=== PATIENT | female | born 2000 | race Caucasian/White ===

== ENCOUNTER 2018-05-30 19:49 | Emergency (ER) | payer OTHER ==
--- NOTE | 2018-05-30 20:04 | EDPHY ---
H & P Stated Complaint: dyspnea Time Seen by Provider: 05/30/18 20:04 HPI/ROS: HPI CHIEF COMPLAINT: Reflux, cough HISTORY OF PRESENT ILLNESS: Very pleasant 17-year-old female, presents emergency room stating that she has had a cough nonproductive cough the end burning sensation or epigastric region that goes up to her throat. Through her chest. Patient reports that gets worse when she lays flat. Additionally she knows when she was exercising today got worse. Burning sensation in her chest. No pleuritic pain. No shortness of breath. Does endorse a cough. No fever. She does have a history of exercise-induced asthma but did not bring her inhaler. She decided come the emergency room to the shortness of breath, cough, burning discomfort. Past Medical History: Exercise-induced asthma Past Surgical History: No recent surgical history Social History: Denies drugs. Does Vape. Occasional alcohol use. Family History: Noncontributory ROS REVIEW OF SYSTEMS: 10 Systems were reviewed and negative with the exception of the elements mentioned in the history of present illness. Exam Constitutional nontoxic no acute distress, triage nursing summary reviewed, vital signs reviewed, awake/alert. Eyes normal conjunctivae and sclera, EOMI, PERRLA. HENT normal inspection, atraumatic, moist mucus membranes, no epistaxis, neck supple/ no meningismus, no raccoon eyes. Respiratory clear to auscultation bilaterally, normal breath sounds, no respiratory distress, no wheezing. Cardiovascular rate normal, regular rhythm, no murmur, no edema, distal pulses normal. Gastrointestinal soft, non-tender, no rebound, no guarding, normal bowel sounds, no distension, no pulsatile mass. Genitourinary no CVA tenderness. Musculoskeletal no midline vertebral tenderness, full range of motion, no calf swelling, no tenderness of extremities, no meningismus, good pulses, neurovascularly intact. Skin pink, warm, & dry, no rash, skin atraumatic. Neurologic awake, alert and oriented x 3, AAOx3, moves all 4 extremities equally, motor intact, sensory intact, CN II-XII intact, normal cerebellar, normal vision, normal speech. Psychiatric normal mood/affect. Heme/Lymph/Immune no lymphadenopathy. Differential Diagnosis: Includes but is not limited to in a particular order GERD, esophageal reflux, esophagitis, job still spasm, pneumonia, pneumothorax, reactive airway disease, PE. Medical Decision Making: Plan for this patient two view chest x-ray, DuoNeb breathing treatment, GI cocktail I do not appreciate wheezing on exam but will see if she improves with these medications. I think pulmonary embolism is very unlikely given no risk factors, it is noted she mildly tachycardic upon arrival. Re-evaluation: Patient received a chest x-ray two view this is negative for acute cardiopulmonary disease. Additionally the patient received a DuoNeb breathing treatment. GI cocktail which she states minimally improved her discomfort. Still complains of a burning discomfort. Due to this will proceed with IV establishment blood draw, EKG, check D-dimer, check troponin. And re-evaluate. Patient's troponin negative. Patient's D-dimer negative. EKG: TIME OF EK, sinus rhythm rate of 91, no signs of acute ischemia no ST elevation no ST depression no significant T-wave abnormalities. 2224: Patient re-examined feeling much better after breathing treatment. She states she can breathe much easier. There was no wheezing upon exam. And on re -examination there is no further wheezing. Patient's vitals are stable. No hypoxia. No fever. Feels much better. Will provided take him on albuterol inhaler. The patient's blood work has been reviewed she has a normal CBC, negative D- dimer, negative troponin, and EKG that shows no acute ischemia A chest x-ray that is reviewed shows no evidence of pneumothorax or pneumonia. I do feel comfortable allowing the patient go home. I do recommend she stays well hydrated, stays away from spicy fatty greasy foods. Albuterol 2 puffs every 4 hr as needed. Additionally return precautions discussed with patient return if worsening pain shortness of breath fever, not doing well. EKG interpretation by me on record in [employer] system. Impression repeat EKG time 10:25 p.m., sinus rhythm rate of 97, no ST elevation no ST depression isolated T-wave inversion V2 V3. Otherwise unremarkable. This is similar to the previous EKG time 9:08 p.m.. 2nd troponin 0.01. Albuterol inhaler provided. Return precautions discussed with the patient Source: Patient - Personal History LMP (Females 10-55): Over 28 Days Ago Current Tetanus/Diphtheria Vaccine: Yes Current Tetanus Diphtheria and Acellular Pertussis (TDAP): Yes - Medical/Surgical History Hx Asthma: Yes Hx Chronic Respiratory Disease: No Hx Diabetes: No Hx Cardiac Disease: No Hx Renal Disease: No Hx Cirrhosis: No Hx Alcoholism: No Hx HIV/AIDS: No Hx Splenectomy or Spleen Trauma: No Other PMH: sports induced asthma - Social History Smoking Status: Current every day smoker Constitutional: Initial Vital Signs Temperature (C) 36.9 C 05/30/18 19:52 Heart Rate 110 H 05/30/18 19:52 Respiratory Rate 16 05/30/18 19:52 Blood Pressure 145/98 H 05/30/18 19:52 O2 Sat (%) 96 05/30/18 19:52 O2 Delivery Mode Room Air Allergies/Adverse Reactions: penicillin G Allergy (Verified 05/30/18 19:55) Sulfa (Sulfonamide Antibiotics) Allergy (Verified 05/30/18 19:55) Medical Decision Making - Diagnostics Imaging Results: Imaging Impressions Chest X-Ray 05/30/18 20:08 Impression: Normal. - Data Points Laboratory Results: Laboratory Results 05/30/18 21:05 05/30/18 21:05 05/30/18 05/30/18 05/30/18 22:35 21:14 21:05 WBC RBC Hgb Hct MCV MCH MCHC RDW Plt Count MPV Neut % (Auto) Lymph % (Auto) Morris % (Auto) Eos % (Auto) Baso % (Auto) Nucleat RBC Rel Count Absolute Neuts (auto) Absolute Lymphs (auto) Absolute Monos (auto) Absolute Eos (auto) Absolute Basos (auto) Absolute Nucleated RBC Immature Gran % Immature Gran # D-Dimer Sodium Potassium Chloride Carbon Dioxide Anion Gap BUN Creatinine Estimated GFR Glucose Calcium Magnesium Total Bilirubin Conjugated Bilirubin Unconjugated Bilirubin AST ALT Alkaline Phosphatase POC Troponin I 0.01 ng/mL ng/mL 0.01 ng/mL ng/mL (0.00-0.08) (0.00-0.08) NT-Pro-B Natriuret Pep Total Protein Albumin Lipase Beta HCG, Qual NEGATIVE 05/30/18 05/30/18 05/30/18 21:05 21:05 21:05 WBC 7.79 10^3/uL 10^3/uL (3.80-9.50) RBC 4.60 10^6/uL 10^6/uL (4.18-5.33) Hgb 14.3 g/dL g/dL (12.6-16.3) Hct 42.4 % % (38.0-47.0) MCV 92.2 fL fL (81.5-99.8) MCH 31.1 pg pg (27.9-34.1) MCHC 33.7 g/dL g/dL (32.4-36.7) RDW 12.9 % % (11.5-15.2) Plt Count 196 10^3/uL 10^3/uL (150-400) MPV 9.5 fL fL (8.7-11.7) Neut % (Auto) 73.4 % % (39.3-74.2) Lymph % (Auto) 13.6 % L % (15.0-45.0) Morris % (Auto) 12.1 % % (4.5-13.0) Eos % (Auto) 0.3 % L % (0.6-7.6) Baso % (Auto) 0.3 % % (0.3-1.7) Nucleat RBC Rel Count 0.0 % % (0.0-0.2) Absolute Neuts (auto) 5.73 10^3/uL 10^3/uL (1.70-6.50) Absolute Lymphs (auto) 1.06 10^3/uL 10^3/uL (1.00-3.00) Absolute Monos (auto) 0.94 10^3/uL H 10^3/uL (0.30-0.80) Absolute Eos (auto) 0.02 10^3/uL L 10^3/uL (0.03-0.40) Absolute Basos (auto) 0.02 10^3/uL 10^3/uL (0.02-0.10) Absolute Nucleated RBC 0.00 10^3/uL 10^3/uL (0-0.01) Immature Gran % 0.3 % % (0.0-1.1) Immature Gran # 0.02 10^3/uL 10^3/uL (0.00-0.10) D-Dimer < 0.27 ug/mLFEU ug/mLFEU (0.00-0.50) Sodium 142 mEq/L mEq/L (135-145) Potassium 3.7 mEq/L mEq/L (3.3-5.0) Chloride 105 mEq/L mEq/L (97-110) Carbon Dioxide 21 mEq/l L mEq/l (22-31) Anion Gap 16 mEq/L H mEq/L (6-14) BUN 13 mg/dL mg/dL (7-23) Creatinine 0.8 mg/dL mg/dL (0.6-1.0) Estimated GFR > 60 Glucose 107 mg/dL H mg/dL (70-100) Calcium 9.9 mg/dL mg/dL (8.5-10.4) Magnesium 2.0 mg/dL mg/dL (1.6-2.3) Total Bilirubin 0.7 mg/dL mg/dL (0.1-1.4) Conjugated Bilirubin 0.3 mg/dL mg/dL (0.0-0.5) Unconjugated Bilirubin 0.4 mg/dL mg/dL (0.0-1.1) AST 25 IU/L IU/L (14-46) ALT 21 IU/L IU/L (9-52) Alkaline Phosphatase 92 IU/L IU/L (38-126) POC Troponin I NT-Pro-B Natriuret Pep < 11 pg/mL pg/mL (0-125) Total Protein 8.0 g/dL g/dL (6.3-8.2) Albumin 5.0 g/dL g/dL (3.5-5.0) Lipase 41 IU/L IU/L (23-300) Beta HCG, Qual Medications Given: Discontinued Medications Al Hydroxide/Mg Hydroxide (Maalox Susp) 30 ml PO ONCE ONE Stop: 05/30/18 20:09 Last Admin: 05/30/18 20:10 Dose: 30 ml Albuterol/Ipratropium (Duoneb) 3 ml IH EDNOW ONE Stop: 05/30/18 20:09 Last Admin: 05/30/18 20:10 Dose: 3 ml Hyoscyamine Sulfate (Levsin, Hyomax-Sl) 0.25 mg PO ONCE ONE Stop: 05/30/18 20:09 Last Admin: 05/30/18 20:10 Dose: 0.25 mg Sodium Chloride (Ns) 1,000 mls @ 0 mls/hr IV EDNOW ONE; Wide Open PRN Reason: Protocol Stop: 05/30/18 20:55 Last Admin: 05/30/18 21:07 Dose: 1,000 mls Lidocaine (Lidocaine 2% Viscous) 15 ml PO ONCE ONE Stop: 05/30/18 20:09 Last Admin: 05/30/18 20:10 Dose: 15 ml Point of Care Test Results: Chemistry 05/30/18 05/30/18 22:35 21:14 POC Troponin I 0.01 ng/mL ng/mL 0.01 ng/mL ng/mL (0.00-0.08) (0.00-0.08) Departure - Departure Disposition: Home, Routine, Self-Care Clinical Impression: Dyspnea Qualifiers: Dyspnea type: unspecified Qualified Code(s): R06.00 - Dyspnea, unspecified Condition: Good Instructions: Dyspnea (ED) Additional Instructions: 1. 2 puffs inhaler every 4 hr as needed for shortness of breath and wheezing. 2. Return to the emergency room if there is worsening symptoms Referrals: NONE *PRIMARY CARE P,. [Primary Care Provider] - As per Instructions
[2018-05-30] MEDS ORDERED: LIDOCAINE 2% VISCOUS 15 ML UDCUP PO ONE (20:08)
[2018-05-30] MEDS ORDERED: IPRATROPIUM/ALBUTEROL 3 ML DEYVIAL IH ONE (20:08)
[2018-05-30] MEDS ORDERED: MAG HYDROX/AL HYDROX/SIMETH 30 ML UDCUP PO ONE (20:08)
[2018-05-30] MEDS ORDERED: HYOSCYAMINE SULFATE 0.125 MG TAB PO ONE (20:08)
[2018-05-30] MEDS ORDERED: HYOSCYAMINE SULFATE 0.125 MG TAB ONE (20:08)
[2018-05-30] MEDS ORDERED: IPRATROPIUM/ALBUTEROL 3 ML DEYVIAL ONE (20:08)
[2018-05-30] MEDS ORDERED: LIDOCAINE 2% VISCOUS 15 ML UDCUP ONE (20:09)
[2018-05-30] MEDS ORDERED: MAG HYDROX/AL HYDROX/SIMETH 30 ML UDCUP ONE (20:09)
[2018-05-30] MEDS ORDERED: NS 1,000 ML IV ONE (20:54)
[2018-05-30 21:23] LABS: PLATELET COUNT 196 10^3/uL (150-400)
[2018-05-30] MEDS ORDERED: ALBUTEROL INH PREPACK MDI TAKEHOME ONE (22:24)
[2018-05-30 23:01] VITALS: BP 112/65
--- NOTE | 2018-06-06 07:05 | CPEKG ---
Test Reason : OPEN Blood Pressure : / mmHG Vent. Rate : 097 BPM Atrial Rate : 097 BPM P-R Int : 155 ms QRS Dur : 086 ms QT Int : 347 ms P-R-T Axes : 038 019 -02 degrees QTc Int : 441 ms Sinus rhythm Borderline T abnormalities, anterior leads Confirmed by Connor Gotti ([id number]) on 06/06/2018 7:05:11 AM Referred By: Confirmed By:Connor Gotti
--- NOTE | 2018-06-06 07:05 | CPEKG ---
Test Reason : OPEN Blood Pressure : / mmHG Vent. Rate : 091 BPM Atrial Rate : 092 BPM P-R Int : 153 ms QRS Dur : 091 ms QT Int : 356 ms P-R-T Axes : 054 031 -03 degrees QTc Int : 439 ms Sinus rhythm Confirmed by Connor Gotti ([id number]) on 06/06/2018 7:05:02 AM Referred By: Confirmed By:Connor Gotti
== END 2018-05-30 22:59 | disposition home or self-care (01) ==
DX: R06.00 Dyspnea, unspecified (principal)
CPT/HCPCS: 84484-PO